=== PATIENT | male | born 1950 | race Caucasian/White ===

== ENCOUNTER 2024-10-23 08:49 | Inpatient (IN) | payer MEDICARE, OTHER, SELFPAY ==
[2024-10-21 09:19] VITALS: BMI 29.9
[2024-10-21 09:46] LABS: % Basophils 0.7 % (0-2); % Immature Granulocytes 0.1 % (0-0.5); % Lymphocytes 28.7 % (20.5-51.1); % Monocytes 7.3 % (1.7-9.3); % Neutrophils 59.2 % (42.2-75.2); Absolute Basophils 0.1 10^3/uL (0-0.2); Absolute Eosinophils 0.3 10^3/uL (0-0.7); Absolute Lymphocytes 2.2 10^3/uL (1.2-3.4); Absolute Monocytes 0.6 10^3/uL (0.1-0.6); Absolute Neutrophils 4.5 10^3/uL (1.4-6.5); Hematocrit 43.9 % (39.0-52.0); Hemoglobin 14.7 g/dL (13.0-18.0); Mean Corp Hgb Conc. 33.5 g/dL (33.0-37.0); Mean Corpuscular Hgb 28.8 pg (27.0-31.0); Mean Corpuscular Volume 85.9 fL (80.0-94.0); Mean Platelet Volume 10.9 fL (7.4-10.4); Nucleated Red Blood Cells % 0 % (-); Platelet Count 184 10^3/uL (130-400); Red Blood Cell Count 5.11 10^6/uL (4.70-6.10); Red Cell Dist. Width 15.1 % (11.5-14.5); White Blood Cell Count 7.7 10^3/uL (4.8-10.8)
[2024-10-21 09:58] LABS: INR 1.02; PT 13.7 Sec (11.4-14.6)
[2024-10-21 09:59] LABS: APTT 28.7 Sec (23.4-35.0)
[2024-10-21 10:24] LABS: Blood Urea Nitrogen 18 mg/dl (9-20); Calcium 9.6 mg/dl (8.4-10.2); Carbon Dioxide 26 mmol/L (22-30); Chloride 110 mmol/L (98-107); Estimated Creatinine Clearance 86 ml/min; Glucose 133 mg/dl (70-99); Potassium 4.3 mmol/L (3.5-5.1); Sodium 144 mmol/L (135-145); eGFR > 60.00
--- NOTE | 2024-10-22 08:36 | PTCARENOTE ---
Abnormal CXR done 10/22/24 reported to Helene at Dr Elliott's office.
--- NOTE | 2024-10-22 08:37 | PTCARENOTE ---
Abnormal CXR done 10/21/24 reported to Helene at Dr Elliott's office.
[2024-10-23 09:10] VITALS: BP 150/59
[2024-10-23 09:56] LABS: Glucose - Point of Care 122 mg/dl (70-99)
[2024-10-23] MEDS: PERIDEX 0.12% ORAL RINSE 15 ML PO (10:29)
[2024-10-23] MEDS: BACTROBAN NASAL 1 GRAM NASAL (10:38)
[2024-10-23] MEDS: PLAVIX 75 MG PO (10:52)
--- NOTE | 2024-10-23 10:55 | W.SUR.PREOP ---
Pre-Operative Surgical Note
-
I have examined this patient prior to the performance of the scheduled procedure.
The patient's condition is unchanged from the time of the current History and
Physical and the patient is able to undergo the scheduled procedure.
[2024-10-23] MEDS: ASPIR LOW (ENTERIC COATED) 81 MG PO (11:00)
[2024-10-23 13:37] LABS: Glucose - Point of Care 128 mg/dl (70-99)
[2024-10-23 13:55] LABS: ACT-LR - POC 247 Seconds (116-155)
[2024-10-23] MEDS: NSS 1000 IV (14:00)
[2024-10-23 14:04] LABS: ACT-LR - POC 295 Seconds (116-155)
--- NOTE | 2024-10-23 14:22 | W.SUR.POST ---
Surgical Immediate Post Op
Note
Pre Op Diagnosis: Left carotid stenosis
Post Op Diagnosis: Left carotid stenosis
Procedure Performed: Left TCAR
Primary Surgeon: Jey Elliott M.D.
elementary assistant teacher: WHIT Morales
Anesthesia: GETA
Estimated Blood Loss: 10 ml
Fluids: See anesthesia flowsheet
Drains/Shunts: N/A
Specimens/Cultures: N/A
Doppler/Duplex/Angio (Y/N): Yes
Complications: None
Operative Findings: Successful endovascular repair of left carotid stenosis, upon waking patient was able to move bilateral upper extremities and lower extremities to command and spontaneously
[2024-10-23 14:49] VITALS: BP 106/62
[2024-10-23 14:50] VITALS: BP 162/75
[2024-10-23 15:16] LABS: Hematocrit 40.4 % (39.0-52.0); Hemoglobin 13.5 g/dL (13.0-18.0); Mean Corp Hgb Conc. 33.4 g/dL (33.0-37.0); Mean Corpuscular Hgb 28.7 pg (27.0-31.0); Mean Corpuscular Volume 85.8 fL (80.0-94.0); Mean Platelet Volume 11.9 fL (7.4-10.4); Platelet Count 138 10^3/uL (130-400); Red Blood Cell Count 4.71 10^6/uL (4.70-6.10); Red Cell Dist. Width 15.1 % (11.5-14.5); White Blood Cell Count 10.8 10^3/uL (4.8-10.8)
[2024-10-23 15:29] LABS: Blood Urea Nitrogen 21 mg/dl (9-20); Calcium 8.6 mg/dl (8.4-10.2); Carbon Dioxide 23 mmol/L (22-30); Chloride 110 mmol/L (98-107); Estimated Creatinine Clearance 97 ml/min; Glucose 144 mg/dl (70-99); Potassium 4.2 mmol/L (3.5-5.1); Sodium 138 mmol/L (135-145); eGFR > 60.00
--- NOTE | 2024-10-23 16:00 | PTCARENOTE ---
arrived via bed from PACU, see admission assessment. in good spirits, no pain, neuro exam intact. L neck, ice pack, family bedside. R groin puncture site soft, dressing CDI. HOB restrictions reviewed, flat x 1 hr, then 30 degrees x 4 hr. denies
urge to void, abd soft. call curtis in reach. BP within parameters. monitor long 1 degree AV block, irregular, occas blocked pac vs sinus pause, pt notes has had this previously.
[2024-10-23 16:02] VITALS: BP 119/77
[2024-10-23 16:10] VITALS: BMI 28.5
--- NOTE | 2024-10-23 16:15 | CON.INTV ---
Consultation
Consultation Request
Date/Time Consultation Requested: 10/23/2024
Date/Time Consultation Performed: 10/23/2024
Requesting Provider: Dr. Elliott
Performing Provider: Dr. Suman Gustafson
Reason for Consultation: Status post Left TCAR
Medical History
-
History of Present Illness:
73-year-old man with past medical history significant for prediabetes, hypercholesterolemia, coronary artery disease with prior stents admitted to the hospital with diagnosis of left carotic artery stenosis. Underwent TCAR without complications.
Patient transferred to the critical care unit for further care. No immediate complications.
Denies headache, blurry vision.
Denies stridor
Pain is controlled
Past Medical History
Past Medical History: Other (See assessment and plan)
Social History
Tobacco: Former Smoker (40+ pack year history quit 4 years ago)
Alcohol: None
Drug: None
Personal:
Living: With Family
Family History
Family History: Reviewed & Not Pertinent
Allergies / Home Medications
Allergies
Allergy/AdvReac Type Severity Reaction Status Date / Time
gabapentin Allergy Severe Swelling Verified 10/23/24 09:22
Sulfa (Sulfonamide Allergy Severe Swelling Verified 10/23/24 09:24
Antibiotics)
levofloxacin (From Levaquin) Allergy Intermediate tendons Verified 10/23/24 09:22
tighten
Home Medications
�Medication �Instructions �Recorded �Confirmed �Last Taken �Type
aspirin 81 mg tablet 81 mg PO DAILY 10/15/24 10/23/24 10/22/24 21:00 History
cholecalciferol (vitamin D3) 50 50 mcg PO DAILY 10/15/24 10/23/24 10/22/24 17:00 History
mcg (2,000 unit) tablet (Vitamin
D3)
fluticasone propionate 50 1 spray intranasal DAILY 10/15/24 10/23/24 Unknown History
mcg/actuation nasal
spray,suspension (Flonase Allergy
Relief)
metformin 500 mg tablet,extended 500 mg PO BID 10/15/24 10/23/24 10/21/24 21:00 History
release 24hr (osmotic)
rosuvastatin 10 mg tablet 10 mg PO DAILY 10/15/24 10/23/24 10/21/24 22:00 History
clopidogrel 75 mg tablet (Plavix) 75 mg PO DAILY 10/23/24 10/23/24 10/22/24 15:00 History
Review of Systems
-
History Source: Patient
All other systems: Negative unless noted
Vitals / Labs / Diagnostic Testing
Vital Signs
Temp Pulse Resp BP Pulse Ox
97.6 F 66 17 106/62 91
10/23/24 16:10 10/23/24 16:00 10/23/24 16:00 10/23/24 14:49 10/23/24 15:30
Lab Data
10/23/24 15:02
10/23/24 15:02
Diagnostic Testing:
Physical Exam
-
HEENT: Normocephalic and Other (Left cervical incision intact-no hematoma. No stridor on exam)
Cardiovascular: S1/S2
Respiratory: Non-Labored Respirations
GI: Soft and Non Distended
Neurology: Awake, Alert, AO x 3 and No Motor Deficits
Skin: Warm
General: Comfortable
Assessment
-
Left carotid artery stenosis-status post TCAR with Dr. Elliott 10/23/2024
Conditions present prior admission:
Coronary artery disease with prior stents
Type 2 diabetes
Rhinitis
Prediabetes
Hypercholesterolemia
History of early-stage left-sided squamous cell lung carcinoma-status post radiation [facility].
Former smoker: 40+ pack year history. Quit 4 years ago
Assessment and plan:
Postoperative surgical intensive care unit monitoring
Supplemental oxygen as needed
Incentive spirometry
Aspiration precautions
-
Chest x-ray 10/21/2024: Reviewed
1. 1.5 cm round density projecting over the peripheral left midlung and left anterior 4th rib. Diagnostic possibilities are (1) a sclerotic bone island or (2) a cavitary pulmonary nodule.
2. Mild right apical lung scarring and pleural thickening.
3. Mild elevation of the left hemidiaphragm.
Left lung abnormality likely represents early stage squamous cell carcinoma status post radiation of [facility].
He will continue to follow-up with radiation oncology at [facility].
Neuro and vascular checks per protocol
Vascular surgery following-correspondence and operative notes reviewed
Monitor blood pressure
Arterial line in place.
Cardene drip if needed
Follow hemoglobin
Follow blood sugars
Insulin supplementation as needed
DVT prophylaxis
Early nutrition
Early mobilization
--- NOTE | 2024-10-23 17:17 | OR.RPT ---
Operative Report
Operative Report
PROCEDURE DATE: 10/23/2024
Preoperative diagnosis:
1. Right carotid artery chronic occlusion.
2. Severe left carotid artery stenosis, questionable symptomatic (questionable amaurosis episodes).
Postoperative diagnosis: same
Procedure:
1. Open exposure of left common carotid artery.
2. Transcarotid left artery revascularization with stent (TCAR) with Enroute reverse tapered 7mm -9mm x 40mm self-expanding stent, and second 9 mm x 30 mm Enroute stent, and utilizing Enroute FLEXIBLE MACHINING SYSTEM MACHINIST flow reversal intraprocedural neuro protection.
3. Intraoperative EEG/SSEP monitoring.
4. Supervision and interpretation
Surgeon: Earl
Cuff Matcher: CHELSEY Mckee, required full aspects of procedure including assistance with traction/countertraction, delivery of stent, assistance with closure.
Complications: None
Anesthesia: General
Fluoroscopy:
Time: 4.3 minutes.
Dose: 81 mGy.
DAP: 11.44.
Indications for procedure:
Chronic right carotid artery occlusion. Severe left carotid stenosis. Questionable amaurosis episodes. Risk/benefits/alternatives of left TCAR discussed (recommended TCAR secondary to anatomy, contralateral occlusion, long segment stenosis at).
Patient understood all wished to proceed.
Description of procedure:
Patient was identified brought to the operating room placed on the table in supine position. After the adequate administration of anesthesia and perioperative antibiotics he was prepped and draped in the standard surgical fashion. A standard
preoperative timeout was undertaken and everybody was in agreement the plan. A longitudinal incision was made at the base of the left neck between the heads of the sternocleidomastoid muscle just superior to the clavicle. This incision was carried
through the skin subcutaneous tissue. Using the electrocautery dissection was carried through the platysma muscle layer and then in the plane between the heads of the sternocleidomastoid muscle. Then using a combination of sharp dissection with
the Metzenbaum scissors and electrocautery I dissected along the anterior medial border of the internal jugular vein. I had great difficulty actually finding and dissecting medial to the internal jugular vein. The natural pull of the tissues
facilitated lateral dissection of the internal jugular vein. However I normally dissect medial to the internal jugular vein to identify the carotid artery. I therefore then instead did dissect laterally as it was proving to be deep and difficult
to dissected from the medial aspect. Care was taken avoid injury to any surrounding structures. As such, I finally was able to identify and dissect the common carotid artery. The common carotid artery was carefully dissected away from the
surrounding structures take great care to avoid any injury to the structures. A vessel loop was passed around it. The common carotid artery was dissected circumferentially only in the proximal portion of the exposed artery, and the anterior
surface was dissected for another 2 cm. Next, a 5-0 Prolene pursestring stitch was placed on the anterior middle surface of the common carotid artery at the anticipated puncture/cannulation site. The patient was now given 7500 units of intravenous
heparin.
Next, the right common femoral vein was punctured with a micropuncture kit under direct duplex ultrasound guidance. An 8 Greek venous sheath was placed over 0.035 inch wire into the vein. The sheath was flushed. The patient was now given 8000
units of intravenous heparin.
Next, while maintaining anterior tension on the vessel loop (single looped), the common carotid artery was punctured with a micropuncture needle (premarked) to only 1 cm and a premarked 0.014 inch wire was inserted and then the needle was exchanged
out for a premarked micropuncture sheath and advanced to 3 cm adriel. The dilator and wire were then removed. Left anterior oblique angiogram was performed. This delineated the carotid bifurcation. It confirmed the severe stenosis in the proximal
internal carotid artery, extending into the common carotid artery, and extending up the internal carotid artery for at least 2 to 3 cm. The carotid bifurcation was marked on the screen. I then advanced a 0.035 inch wire with a J curve at the tip.
This was stopped just short of the bifurcation. I then exchanged the micropuncture sheath out for the [address] sheath, which was advanced to the footplate under fluoroscopy with careful vigilance of the distal tip of the wire.
Once advanced to the footplate, the introducer and wire were removed. The tension from the vessel loop was released. And the sheath was secured to the skin with silk suture. The sheath was burped back and also flushed carefully. Next repeat
imaging was undertaken confirming the best angulation of the gantry for imaging. At this point, the angioplasty balloon and stent were prepared. We pause to confirm the plan regarding balloon/stent, and confirmed adequate ACT over 250 (note an
additional 1000 units of intravenous heparin was administered to achieve that). Next, I connected the arterial sheath to the venous sheath with the filter section. As such passive flow reversal was initiated. There were no evidence of any EEG or
SSEP changes. We flushed the venous sheath to confirm adequate passive flow reversal.
At this point given that we were otherwise ready, I tightened my double looped vessel loop on the common carotid artery thereby initiating active flow reversal. Again I flushed the venous sheath to confirm active flow reversal. There was no EEG or
SSEP changes. I now used a precurved 0.014 inch wire and roadmap assisted fluoroscopy guidance to cannulate the internal carotid artery carefully. I was able to gain access into the distal cervical/proximal intracranial internal carotid artery.
Next I used a balloon which was a 5 mm x 30 mm standard angioplasty balloon. I then pre-angioplastied the stenosis. The patient had been given glycopyrrolate to prevent any baroreceptor mediated bradycardia. The patient's blood pressure had also
been optimized after discussion with our anesthesiology colleagues prior to initiation of flow reversal. I then quickly exchanged out my balloon catheter for the stent reverse tapered 7 mm - 9 mm x 40 mm Enroute. The stent was positioned under
roadmap guidance. When I was happy with the positioning I then unsheathed in the standard fashion. The stent delivery device was then removed. Next I advanced a second stent (this was planned) given the extent and length of the plaque extending
into the common carotid artery. This was a 9 mm x 30 mm Enroute stent. I was satisfied with the positioning, and the stent delivery device was then removed. Completion angiography was undertaken after 2 minutes of waiting after deployment of
the stent for the flow reversal to take effect. Completion angiogram demonstrated excellent result and it was done in 2 obliquities to confirm. No residual stenosis was noted. Good intracranial filling was noted. At this point I was very
satisfied. The 0.014 inch wire was then removed from the internal carotid artery. Next, the common carotid artery was unclamped. Finally I disconnected the flow reversal circuit.
Now, I tied down my 5-0 Prolene pursestring suture on the common carotid artery while removing the sheath. We gave protamine to reverse the heparin. I irrigated the incision site and confirmed full hemostasis. Then, we closed in layers using
single [id number] 2-0 Vicryl to reapproximate the sternocleidomastoid heads. Then used 3-0 Vicryl platysma muscle running layer followed by 4-0 Monocryl subcuticular running stitch. Dermabond was applied. The femoral vein sheath was also
removed and manual pressure was applied to that site and hemostasis was noted there as well. Protamine had been given to reverse the heparin. The patient tolerated the procedure well. He awoke moving all 4 extremities to command. He was
transported to recovery room in stable condition.
[2024-10-23 17:36] LABS: Glucose - Point of Care 131 mg/dl (70-99)
--- NOTE | 2024-10-23 18:45 | PTCARENOTE ---
voided clear yellow noted slight burning, explained about straight cath performed in OR, expected, fluids bedside, drinking well. ate dinner easily, family visiting. VS noted. neuro and groin checks continue, unchanged.
[2024-10-23] MEDS: TYLENOL 650 MG PO (19:20)
[2024-10-23] MEDS: HEPARIN 5000 UNITS SC (19:21)
[2024-10-23 21:52] VITALS: BMI 28.7
[2024-10-23 22:08] LABS: Glucose - Point of Care 161 mg/dl (70-99)
[2024-10-24] MEDS: ANESTHETIC LOZENGE 1 LOZENGE PO (00:30)
--- NOTE | 2024-10-24 00:46 | PTCARENOTE ---
pt reassessed. SBP remains in goal range, arterial line leveled and zeroed. pain meds given for L neck pain, see MAR. neuro checks ongoing. surgical incision to L neck, PROGRAM INSTRUCTOR w/ glue. R groin site with gauze and tegaderm, C/D/I. CHG bath done. pt
using urinal. call curtis in reach.
[2024-10-24] MEDS: NSS 1000 IV (03:49)
[2024-10-24 04:10] LABS: Hematocrit 37.4 % (39.0-52.0); Hemoglobin 12.4 g/dL (13.0-18.0); Mean Corp Hgb Conc. 33.2 g/dL (33.0-37.0); Mean Corpuscular Hgb 28.4 pg (27.0-31.0); Mean Corpuscular Volume 85.8 fL (80.0-94.0); Mean Platelet Volume 11.6 fL (7.4-10.4); Platelet Count 160 10^3/uL (130-400); Red Blood Cell Count 4.36 10^6/uL (4.70-6.10); Red Cell Dist. Width 14.9 % (11.5-14.5); White Blood Cell Count 11.1 10^3/uL (4.8-10.8)
[2024-10-24 04:20] LABS: INR 1.13; PT 14.8 Sec (11.4-14.6)
[2024-10-24 04:21] LABS: APTT 29.7 Sec (23.4-35.0)
[2024-10-24 04:41] LABS: Blood Urea Nitrogen 16 mg/dl (9-20); Calcium 8.8 mg/dl (8.4-10.2); Carbon Dioxide 21 mmol/L (22-30); Chloride 111 mmol/L (98-107); Estimated Creatinine Clearance 120 ml/min; Glucose 120 mg/dl (70-99); Potassium 4.1 mmol/L (3.5-5.1); Sodium 138 mmol/L (135-145); eGFR > 60.00
--- NOTE | 2024-10-24 05:35 | PTCARENOTE ---
AM labs sent. neuro checks ongoing, neck and groin sites intact. pt offers no complaints at this time. call curtis in reach
[2024-10-24] MEDS: TYLENOL 650 MG PO (05:56)
[2024-10-24 06:00] VITALS: BMI 28.7
[2024-10-24] MEDS: ASPIR LOW (ENTERIC COATED) 81 MG PO (07:34)
[2024-10-24] MEDS: CRESTOR 10 MG PO (07:35)
[2024-10-24] MEDS: PLAVIX 75 MG PO (07:35)
[2024-10-24] MEDS: VITAMIN D3 (cholecalciferol) 50 MCG PO (07:35)
[2024-10-24] MEDS: HEPARIN 5000 UNITS SC (07:35)
[2024-10-24 07:47] LABS: Glucose - Point of Care 114 mg/dl (70-99)
--- NOTE | 2024-10-24 08:48 | W.PN.VS ---
Today's Communication / Plan
-
Seen and assessed with Dr. Fallon
Assessment/Plan
-
POD 1 left TCAR
Plan:
DC A-line
DC IV fluids
Out of bed/ambulate
P.o. meds
Increase diet
Likely DC later today
Subjective Data
-
Date of Service: October 24, 2024
Patient seen at bedside this a.m. with Dr. Fallon. Patient offers no complaints at this time. No events overnight.
Objective Data
-
Vital Signs
Temp Pulse Resp BP Pulse Ox
98.3 F 60 19 119/77 98
10/24/24 07:00 10/24/24 06:00 10/24/24 06:00 10/23/24 16:02 10/24/24 06:00
Intake and Output
10/23/24 10/24/24 10/25/24
06:59 06:59 06:59
Intake Total 3100 / 3100
Output Total 2210 / 2210
Balance 890 / 890
Intake:
Oral fluids 1800 / 1800
IV fluids (Total) 1300 / 1300
Nss 1,000 ml @ 80 mls/hr IV . 1200 / 1200
[id number] [facility] Rx#:[id number]
normosol 100 / 100
Output:
Urine, Fallon 600 / 600
Urine, Voided 1610 / 1610
Lab Results
10/24/24 03:56
10/24/24 03:56
Calcium 8.8 mg/dl (8.4-10.2) 10/24/24 03:56
Physical Exam
-
AAO x 3
No tachypnea on room air
No tachycardia
Abdomen soft
Neck site clean, dry, intact, soft, flat, well-approximated
Groin site clean, dry, intact, soft, flat
Moves all extremities equally
--- NOTE | 2024-10-24 09:00 | PTCARENOTE ---
Assumed care at 0700. Neuro assessment WNL. A-line removed, Pt OOB to chair. VSS. See assessment.
[2024-10-24 09:31] LABS: Glucose - Point of Care 181 mg/dl (70-99)
[2024-10-24 10:01] VITALS: BP 102/59
[2024-10-24 11:00] VITALS: BP 107/59
[2024-10-24 12:00] VITALS: BP 112/62
--- NOTE | 2024-10-24 12:04 | W.PN.INTV ---
Today's Communication / Plan
Recommendations
Continue postoperative care
Possible discharge later today
Sign off
Assessment
-
Left carotid artery stenosis-status post TCAR with Dr. Elliott 10/23/2024
Conditions present prior admission:
Coronary artery disease with prior stents
Type 2 diabetes
Rhinitis
Prediabetes
Hypercholesterolemia
History of early-stage left-sided squamous cell lung carcinoma-status post radiation .
Former smoker: 40+ pack year history. Quit 4 years ago
Assessment and plan:
Postoperative day 1
Doing well
Neurologically intact
Incision is intact without hematoma
No stridor on exam
Patient offers no new complaints
-
Chest x-ray 10/21/2024: Discussed with patient
1. 1.5 cm round density projecting over the peripheral left midlung and left anterior 4th rib. Diagnostic possibilities are (1) a sclerotic bone island or (2) a cavitary pulmonary nodule.
2. Mild right apical lung scarring and pleural thickening.
3. Mild elevation of the left hemidiaphragm.
Left lung abnormality likely represents early stage squamous cell carcinoma status post radiation of .
He will continue to follow-up with radiation oncology at [facility].
Vascular surgery following-correspondence and operative notes reviewed-possible discharge later today
Increase activity as
Critical care team will sign off.
Subjective Dataa
Subjective Data
Date of Service:
Date of Service: October 24, 2024
Chief Complaint: Manager Risk Follow Up (Status post R TCAR)
Subjective:
Patient offers no complaints
Sitting out of bed eating breakfast independently
Review of Systems
Neuro: Headache (n) and Dizziness (n)
Objective Data
Data Reviewed
Vital Signs / I&O / Oxygen:
Vital Signs
Temp Pulse Resp BP Pulse Ox
98.4 F 51 18 102/59 100
10/24/24 11:06 10/24/24 10:01 10/24/24 10:01 10/24/24 10:01 10/24/24 10:01
Intake and Output
10/23/24 10/24/24 10/25/24
06:59 06:59 06:59
Intake Total 3100 / 3180 240 / 240
Output Total 2210 / 2210
Balance 890 / 970 240 / 240
SaO2 100
Physical Exam
General: Comfortable
HEENT: Normocephalic and Other (Incision is intact without hematoma. No stridor on exam)
Cardiovascular: S1-S2
Respiratory: Clear
GI: Soft and Non Distended
Neurology: Awake, Alert and No Motor Deficits
Skin: Warm
Labs/Micro/Reports
Lab Data
10/24/24 03:56
10/24/24 03:56
Laboratory Results
10/24/24
03:56
PT 14.8 H
INR 1.13
APTT 29.7
[2024-10-24 12:19] LABS: Glucose - Point of Care 130 mg/dl (70-99)
[2024-10-24 13:00] VITALS: BP 125/68
--- NOTE | 2024-10-24 13:51 | PTCARENOTE ---
Discharge orders reviewed and discussed with pt and spouse. IV X2 removed. Pt escorted to car without issue.
--- NOTE | 2024-10-27 09:51 | CM ---
discharge dispo entered.
== END 2024-10-24 13:16 | disposition home or self-care (01) | DRG 36 ==
LOC: ICU 08:49
PROVIDERS: Nurse Practitioner; ADMITTING PHYSICIAN Surgery Vascular Surgery; CONSULT PHYSICIAN Internal Medicine Critical Care Medicine; PRIMARYCARE PHYSICIAN Family Medicine
PROC: 037J3DZ Dilation of Left Common Carotid Artery with Intraluminal Device, Percutaneous Approach (ICD-10-PCS; 2024-10-23)
PROC: 037L3DZ Dilation of Left Internal Carotid Artery with Intraluminal Device, Percutaneous Approach (ICD-10-PCS; 2024-10-23)
PROC: X2AJ336 Cerebral Embolic Filtration, Extracorporeal Flow Reversal Circuit from Left Common Carotid Artery, Percutaneous Approach, New Technology Group 6 (ICD-10-PCS; 2024-10-23)
DX: I65.22 Occlusion and stenosis of left carotid artery (principal); J31.0 Chronic rhinitis; I25.10 Atherosclerotic heart disease of native coronary artery without angina pectoris; E11.9 Type 2 diabetes mellitus without complications; E78.00 Pure hypercholesterolemia, unspecified; Z88.2 Allergy status to sulfonamides; Z88.1 Allergy status to other antibiotic agents; Z88.8 Allergy status to other drugs, medicaments and biological substances; Z87.891 Personal history of nicotine dependence; Z95.5 Presence of coronary angioplasty implant and graft; Z79.84 Long term (current) use of oral hypoglycemic drugs; Z79.02 Long term (current) use of antithrombotics/antiplatelets; Z92.3 Personal history of irradiation; Z85.118 Personal history of other malignant neoplasm of bronchus and lung
CPT/HCPCS: 36415; 37215; 71046; 80048; 82962; 85025; 85027; 85610; 85730; 86850; 86900; 86901; 95938; 95941; 95955; 99406; C1725; C1769; C1876; C1894; Q9967

== ENCOUNTER → 2024-12-01 13:50 | Outpatient (REF) | payer MEDICARE, OTHER, SELFPAY | LOC: RAD 13:50 | PROVIDERS: ATTENDING PHYSICIAN Registered Nurse; FAMILY PHYSICIAN Family Medicine | DX: I65.22 Occlusion and stenosis of left carotid artery (principal) | CPT/HCPCS: 93880 ==